=== PATIENT | female | born 1950 | race African-American/Black ===

== ENCOUNTER 2024-06-25 19:25 | Observation (INO) | payer MEDICARE ==
[~2024-06-25] VITALS: Ht 160 cm; Wt 60.8 kg
[2024-06-25 19:44] VITALS: TEMP 98.4
[2024-06-25 20:22] LABS: BASOPHILS # (AUTO) 0.1 (0.0-0.1); BASOPHILS % 0.9 % (0.0-1.0); EOSINOPHILS # (AUTO) 0.2 (0.0-0.4); EOSINOPHILS % 2.4 % (0.0-6.0); HEMATOCRIT 39.3 % (34.2-44.1); HEMOGLOBIN 11.6 g/dL (12.0-16.0); LYMPHOCYTES # (AUTO) 2.8 (1.0-3.2); LYMPHOCYTES % 44.7 % (18.0-39.1); MEAN CORPUSCULAR HEMOGLOBIN 28.8 pg (28-32); MEAN CORPUSCULAR HGB CONC 29.5 g/dL (31-35); MEAN CORPUSCULAR VOLUME 97.5 fL (81-99); MONOCYTES # (AUTO) 0.4 (0.2-0.8); MONOCYTES % 5.8 % (4.4-11.3); NEUTROPHILS # (AUTO) 2.9 (2.1-6.9); PLATELET COUNT 391 x10e3/uL (140-360); RED BLOOD COUNT 4.03 x10e6/uL (3.6-5.1); WHITE BLOOD COUNT 6.35 x10e3/uL (4.8-10.8)
[2024-06-25 20:46] LABS: ALBUMIN 3.8 g/dL (3.5-5.0); ALBUMIN/GLOBULIN RATIO 0.9 (0.8-2.0); ANION GAP 16.6 mmol/L (8-16); BILIRUBIN,TOTAL 0.3 mg/dL (0.2-1.2); CALCIUM 9.5 mg/dL (8.4-10.2); CREATININE, SERUM 0.83 mg/dL (0.57-1.11); POTASSIUM 3.6 mmol/L (3.5-5.1); TOTAL PROTEIN 8.1 g/dL (6.5-8.1)
[2024-06-25 20:47] LABS: LIPASE 24 U/L (8-78)
[2024-06-25 20:50] LABS: ETHANOL < 10.0 mg/dL (0.0-10.0)
[2024-06-25 20:52] LABS: TROPONIN I 0.009 ng/mL (0-0.300)
[2024-06-25] MEDS: ONDANSETRON HCL INJ 2MG/ML 2ML 2 MG/ML VIAL IV PRN (22:36)
[2024-06-25] MEDS: HYDROMORPHONE 1MG/1ML INJ IV PRN (22:36)
[2024-06-25] MEDS: CALCIUM GLUC 1 G/50 ML NACL 50 ML IV ONE (22:37)
[2024-06-25] MEDS: GLUCAGON FOR INJ 1 MG VIAL IV ONE (22:37)
[2024-06-25 22:59] VITALS: PULSE 65; RESP 18
[2024-06-25 23:35] LABS: CORONAVIRUS COVID-19 AG NEGATIVE (NEGATIVE); INFLUENZA A AG NEGATIVE (NEGATIVE); INFLUENZA B AG NEGATIVE (NEGATIVE)
[2024-06-25 23:45] VITALS: BP 136/60; PULSE 59; RESP 16; TEMP 97.8; O2SAT 96
[2024-06-26] VITALS: BP 136/60; PULSE 59; RESP 16; TEMP 97.8; O2SAT 100
[2024-06-26] MEDS ORDERED: PRASUGREL HCL10 MG PO (00:56)
[2024-06-26] MEDS ORDERED: HYDROMORPHONE HC2 MG PO (00:56)
[2024-06-26] MEDS ORDERED: OLANZAPINE ODT5 MG PO (00:56)
[2024-06-26] MEDS ORDERED: ASPIRIN81 MG PO (00:56)
[2024-06-26 05:35] VITALS: BP 132/63; PULSE 51; RESP 18; TEMP 97.7; O2SAT 100
[2024-06-26 07:05] LABS: BASOPHILS # (AUTO) 0.1 (0.0-0.1); BASOPHILS % 0.7 % (0.0-1.0); EOSINOPHILS # (AUTO) 0.2 (0.0-0.4); EOSINOPHILS % 2.2 % (0.0-6.0); HEMATOCRIT 35.5 % (34.2-44.1); LYMPHOCYTES % 42.3 % (18.0-39.1); MEAN CORPUSCULAR HEMOGLOBIN 28.8 pg (28-32); MEAN CORPUSCULAR VOLUME 92.9 fL (81-99); MONOCYTES # (AUTO) 0.4 (0.2-0.8); MONOCYTES % 6.2 % (4.4-11.3); NEUTROPHILS # (AUTO) 3.4 (2.1-6.9); NEUTROPHILS % 48.3 % (38.7-80.0); PLATELET COUNT 393 x10e3/uL (140-360); RED BLOOD COUNT 3.82 x10e6/uL (3.6-5.1); RED CELL DISTRIBUTION WIDTH 14.5 % (11.7-14.4); WHITE BLOOD COUNT 7.12 x10e3/uL (4.8-10.8)
[2024-06-26 07:31] LABS: ALBUMIN 3.3 g/dL (3.5-5.0); ALBUMIN/GLOBULIN RATIO 0.9 (0.8-2.0); ANION GAP 15.7 mmol/L (8-16); BILIRUBIN,TOTAL 0.2 mg/dL (0.2-1.2); CALCIUM 9.3 mg/dL (8.4-10.2); CREATININE, SERUM 0.92 mg/dL (0.57-1.11); POTASSIUM 3.7 mmol/L (3.5-5.1); TOTAL PROTEIN 7.1 g/dL (6.5-8.1)
[2024-06-26 07:45] VITALS: BP 118/57; PULSE 58; RESP 19; TEMP 97.4; O2SAT 100
[2024-06-26 07:49] LABS: TROPONIN I 0.008 ng/mL (0-0.300)
[2024-06-26 07:57] VITALS: PULSE 58; RESP 18; O2SAT 97
== END 2024-06-26 11:25 | disposition home or self-care (01) ==
LOC: ER 19:34 → ERHOLD 21:36 → MED/SURG3 23:30
PROVIDERS: ADMIT Internal Medicine; ATTEND Internal Medicine
DX: M06.89 Other specified rheumatoid arthritis, multiple sites (principal); R07.89 Other chest pain; M25.512 Pain in left shoulder; G89.29 Other chronic pain; R00.1 Bradycardia, unspecified; M19.91 Primary osteoarthritis, unspecified site; I49.3 Ventricular premature depolarization; I10 Essential (primary) hypertension; I25.10 Atherosclerotic heart disease of native coronary artery without angina pectoris; Z95.5 Presence of coronary angioplasty implant and graft; F41.9 Anxiety disorder, unspecified; M21.80 Other specified acquired deformities of unspecified limb; Z96.612 Presence of left artificial shoulder joint; Z96.611 Presence of right artificial shoulder joint; Z96.622 Presence of left artificial elbow joint; Z79.82 Long term (current) use of aspirin; Z79.899 Other long term (current) drug therapy; Z11.52 Encounter for screening for COVID-19
CPT/HCPCS: 36415 ×2; 71045; 80053 ×2; 80320; 82550 ×2; 83690; 83880; 84484 ×2; 85025 ×2; 87428; 93005; 94799; 99284; G0378 ×2; J1171 ×2; J1610; J2405

== ENCOUNTER 2024-06-27 12:37 | Emergency (ER) | payer MEDICARE ==
[~2024-06-27] VITALS: Ht 160 cm; Wt 60.8 kg
[~2024-06-27 12:37] MED LIST: ASPIRIN81 MG PO; HYDROMORPHONE HC2 MG PO; OLANZAPINE ODT5 MG PO; PRASUGREL HCL10 MG PO
[2024-06-27 12:44] VITALS: TEMP 98.1
[2024-06-27] MEDS: HYDROMORPHONE 1MG/1ML INJ IV STA (13:33)
[2024-06-27 13:58] LABS: BASOPHILS % 0.6 % (0.0-1.0); EOSINOPHILS # (AUTO) 0.1 (0.0-0.4); HEMATOCRIT 39.6 % (34.2-44.1); HEMOGLOBIN 11.8 g/dL (12.0-16.0); LYMPHOCYTES # (AUTO) 2.2 (1.0-3.2); LYMPHOCYTES % 43.8 % (18.0-39.1); MEAN CORPUSCULAR HEMOGLOBIN 29.1 pg (28-32); MEAN CORPUSCULAR HGB CONC 29.8 g/dL (31-35); MEAN CORPUSCULAR VOLUME 97.5 fL (81-99); MONOCYTES # (AUTO) 0.3 (0.2-0.8); MONOCYTES % 5.7 % (4.4-11.3); NEUTROPHILS # (AUTO) 2.4 (2.1-6.9); NEUTROPHILS % 47.7 % (38.7-80.0); PLATELET COUNT 391 x10e3/uL (140-360); RED BLOOD COUNT 4.06 x10e6/uL (3.6-5.1); RED CELL DISTRIBUTION WIDTH 14.1 % (11.7-14.4); WHITE BLOOD COUNT 5.05 x10e3/uL (4.8-10.8)
[2024-06-27 14:08] LABS: ANION GAP 17.8 mmol/L (8-16); CALCIUM 9.8 mg/dL (8.4-10.2); CREATININE, SERUM 0.87 mg/dL (0.57-1.11); POTASSIUM 3.8 mmol/L (3.5-5.1)
[2024-06-27 14:31] LABS: TROPONIN I 0.052 ng/mL (0-0.300)
[2024-06-27 15:12] VITALS: PULSE 54; RESP 16; O2SAT 99
== END 2024-06-27 18:22 | disposition home or self-care (01) ==
LOC: ER 12:48
DX: R07.89 Other chest pain (principal); R00.1 Bradycardia, unspecified; M06.9 Rheumatoid arthritis, unspecified; I10 Essential (primary) hypertension; I25.10 Atherosclerotic heart disease of native coronary artery without angina pectoris; F41.9 Anxiety disorder, unspecified
CPT/HCPCS: 36415; 80048; 82550; 84484; 85025; 99283; J1171; 93005